=== PATIENT | female | born 1995 | race Caucasian/White ===

== ENCOUNTER → 2017-02-08 | Outpatient (CLI) | payer BC ==
[2017-02-08 12:25] LABS: BASO % 0.3 %; BASO ABS # 0.02 K/uL (0-0.2); COMPLETE YES; EOS % 2.9 %; HEMATOCRIT 39.8 % (37-47); IG% 0.2 %; LYMPH % 32.9 %; LYMPH ABS # 2.04 K/uL (1.2-3.4); MEAN CELL VOLUME 92.8 fL (80-100); MEAN CORPUSCULAR HEMOGLOBIN 31.2 pg (25-34); MEAN CORPUSCULAR HGB CONC 33.7 g/dl (32-36); MEAN PLATELET VOLUME 11.3 fL (7.4-10.4); MONO % 9.8 %; NEUT % 53.9 %; PLATELET COUNT 260 K/uL (130-400); RED BLOOD COUNT 4.29 M/uL (4.2-5.4)
[2017-02-08 14:31] LABS: THYROID STIMULATING HORMONE 1.17 uIu/ml (0.300-4.500)
== END | disposition home or self-care (01) ==
LOC: C.LABBFT 10:36
PROVIDERS: ATTEND Pediatrics
DX: F41.8 Other specified anxiety disorders (principal)